=== PATIENT | male | born 1960 | race Caucasian/White ===

== ENCOUNTER 2019-07-16 06:32 | Emergency (ER) | payer OTHER ==
[2019-07-16] MEDS ORDERED: KETOROLAC TROMETHAMINE 60 MG/2 ML SDV IM ONE (07:45)
[2019-07-16 08:10] LABS: ABSOLUTE EOSINOPHILS # (AUTO) 0.1 10^3/uL (0.0-0.6); ABSOLUTE LYMPHOCYTES (AUTO) 1.1 10^3/uL (0.5-4.7); ABSOLUTE MONOCYTES (AUTO) 1.7 10^3/uL (0.1-1.4); ABSOLUTE NEUT (AUTO) 12.6 10^3/uL (1.7-8.2); BASOPHILS % (AUTO) 0.3 % (0-2); EOSINOPHILS % (AUTO) 0.9 % (0-6); LYMPHOCYTES % (AUTO) 7.1 % (13-45); MEAN CORPUSCULAR HEMOGLOBIN 36.3 pg (27.0-33.4); MEAN CORPUSCULAR HGB CONC 35.5 g/dL (32.0-36.0); MEAN CORPUSCULAR VOLUME 103 fl (80-97); MONOCYTES % (AUTO) 10.8 % (3-13); PLATELET COUNT 183 10^3/uL (150-450); RED BLOOD COUNT 5.63 10^6/uL (4.35-5.55); RED CELL DISTRIBUTION WIDTH 13.8 % (11.5-14.0); SEGMENTED NEUTROPHILS % (AUTO) 80.9 % (42-78); TOTAL CELLS COUNTED % (AUTO) 100 %; WHITE BLOOD COUNT 15.6 10^3/uL (4.0-10.5)
--- NOTE | 2019-07-16 08:10 | ER Document Report ---
ED General - General Chief Complaint: Flank Pain Stated Complaint: RIGHT HIP PAIN Time Seen by Provider: 07/16/19 07:29 Primary Care Provider: ELIZABETH PEREZ MD [EMERITUS] - Follow up as needed JANELL GERARDO MD [ACTIVE STAFF] - Follow up as needed Mode of Arrival: Ambulatory Information source: Patient TRAVEL OUTSIDE OF THE [place] IN LAST 30 DAYS: No - HPI Onset: This morning Onset/Duration: Sudden Quality of pain: Sharp Severity: Moderate Pain Level: 3 Associated symptoms: None Exacerbated by: Movement, Other - laying on right side Relieved by: Other - laying on left side Similar symptoms previously: Yes - patient has chronic neck, back, hip and knee pains Recently seen / treated by doctor: Yes - by his Doctor's at the [facility] for steroid injections about a month ago Notes: 59 year old male with a history of chronic neck, back, hip, and knee pains as well as hypertension and kidney stones here in the ER for acute on chronic right sided neck, back, and hip pain since waking up this morning. The patient tells me he has had pain in these areas before but today's pain was more intense. The patient denies recent heavy lifting or recent trauma to his neck, back or hip. - Related Data Allergies/Adverse Reactions: No Known Allergies Allergy (Verified 07/16/19 07:52) Past Medical History - General Information source: Patient - Social History Smoking Status: Current Every Day Smoker Frequency of alcohol use: Occasional Drug Abuse: None Family History: Reviewed & Not Pertinent Patient has suicidal ideation: No Patient has homicidal ideation: No - Past Medical History Cardiac Medical History: Reports: Hx Hypertension Review of Systems - Review of Systems Constitutional: No symptoms reported EENT: No symptoms reported Cardiovascular: No symptoms reported Respiratory: No symptoms reported Gastrointestinal: No symptoms reported Genitourinary: No symptoms reported Male Genitourinary: No symptoms reported Musculoskeletal: Other - right sided neck, back, hip pain Skin: No symptoms reported Hematologic/Lymphatic: No symptoms reported Neurological/Psychological: No symptoms reported -: Yes All other systems reviewed and negative Physical Exam - Vital signs Vitals: Temp Pulse Resp BP Pulse Ox 98.7 F 70 18 143/78 H 97 07/16/19 08:35 07/16/19 08:35 07/16/19 08:35 07/16/19 08:35 07/16/19 08:35 - Notes Notes: GENERAL: Well-appearing, well-nourished and in no acute distress. HEAD: Atraumatic, normocephalic. EYES: Pupils equal round and reactive to light, extraocular movements intact, sclera anicteric, conjunctiva are normal. ENT: Normal external ears, nares patent, oropharynx clear without exudates. Moist mucous membranes. NECK: Normal range of motion, supple without lymphadenopathy or JVD. LUNGS: Breath sounds clear to auscultation bilaterally and equal. No wheezes rales or rhonchi. HEART: Regular rate and rhythm without murmurs, rubs or gallops. ABDOMEN: Soft, nontender, normoactive bowel sounds. No guarding, no rebound. No masses appreciated. BACK: Mild tenderness in lumbar spine region on palpation with no step offs. EXTREMITIES: Mild tenderness in right hip on palpation. Normal range of motion, no pitting or edema. No clubbing or cyanosis. NEUROLOGICAL: Cranial nerves II through XII grossly intact. Normal speech, normal gait. PSYCH: Normal mood, normal affect. SKIN: Warm, Dry, normal turgor, no rashes or lesions noted. Course - Re-evaluation Re-evalutation: 07/16/19 09:16 The patient is here for acute on chronic pain in his right neck, back, hip. The patient is a chronic smoker and his hemoglobin is in the 20s today. When speaking with the patient he has been referred to a Protective Services Social Worker by his PCP but he has not seen one yet. The patient was given IV fluids for his polycythemia in the ER today (it is unlikely this is causing any of his pain). Patient was given Toradol for his acute on chronic right sided neck, back, and hip pain. Patient had some relief from the Toradol. Will DC patient with a course of Naproxen and will refer him to outpatient Hematology. 07/16/19 10:23 The patient has RBCs, WBCs, and Trace Leuk Esterase in his urine. His urine is consistent with a kidney stone. He likely passed a kidney stone on the right but CT shows no evidence of a stone currently. Patient does have a very small left sided kidney stone but the patient's pain was all right sided today. Patient says the more he thinks about, the more he thinks he probably did pass a kidney stone this morning. The patient says he urinated several times before his ER presentation and after the pain started so it is possible the stone has completely passed. Will culture urine to ensure no UTI but this seems unlikely given he is having no dysuria, urgency, frequency, fevers. - Vital Signs Vital signs: Temp Pulse Resp BP Pulse Ox 98.7 F 70 18 143/78 H 97 07/16/19 08:35 07/16/19 08:35 07/16/19 08:35 07/16/19 08:35 07/16/19 08:35 - Laboratory Result Diagrams: 07/16/19 07:45 07/16/19 07:45 Laboratory results interpreted by me: 07/16/19 07/16/19 07/16/19 07:45 07:45 07:45 WBC 15.6 H RBC 5.63 H Hgb 20.5 H* Hct 57.7 H MCV 103 H MCH 36.3 H Lymph % (Auto) 7.1 L Absolute Neuts (auto) 12.6 H Absolute Monos (auto) 1.7 H Seg Neutrophils % 80.9 H Sodium 134.5 L Total Bilirubin 1.6 H Creatine Kinase 34 L Urine Protein Urine Ketones Urine Blood Urine Urobilinogen Ur Leukocyte Esterase 07/16/19 08:55 WBC RBC Hgb Hct MCV MCH Lymph % (Auto) Absolute Neuts (auto) Absolute Monos (auto) Seg Neutrophils % Sodium Total Bilirubin Creatine Kinase Urine Protein 100 H Urine Ketones 20 H Urine Blood LARGE H Urine Urobilinogen 4.0 H Ur Leukocyte Esterase TRACE H - Diagnostic Test Radiology reviewed: Image reviewed, Reports reviewed Discharge - Discharge Clinical Impression: Kidney stone Back pain Qualifiers: Back pain location: low back pain Chronicity: unspecified Back pain laterality: unspecified Sciatica presence: with sciatica Sciatica laterality: sciatica of right side Qualified Code(s): M54.41 - Lumbago with sciatica, right side Condition: Stable Disposition: HOME, SELF-CARE Instructions: Low Back Pain ([facility]), Kidney Stone ([facility]) Additional Instructions: Use the prescribed Naproxen for neck, back and hip pain along with over the counter Tylenol. Also try using a heating pad. Follow up with your primary care doctor and with a Protective Services Social Worker since your Hemoglobin is elevated at 20.5. You had a CT scan today in the ER which shows you have a very small left sided kidney stone. Prescriptions: RX: Naproxen 500 mg PO BID PRN #14 tablet PRN Reason: Referrals: ELIZABETH PEREZ MD [EMERITUS] - Follow up as needed JANELL GERARDO MD [ACTIVE STAFF] - Follow up as needed
[2019-07-16 08:20] LABS: HEMATOCRIT 57.7 % (37.9-51.0)
[2019-07-16 08:22] LABS: ALBUMIN 4.1 g/dL (3.5-5.0); ALKALINE PHOSPHATASE 117 U/L (38-126); ANION GAP 8 (5-19); ASPARTATE AMINO TRANSFERASE 38 U/L (17-59); BILIRUBIN,DIRECT 0.1 mg/dL (0.0-0.4); BILIRUBIN,TOTAL 1.6 mg/dL (0.2-1.3); BLOOD UREA NITROGEN 8 mg/dL (7-20); CALCIUM 9.3 mg/dL (8.4-10.2); CARBON DIOXIDE 27 mmol/L (22-30); CHLORIDE 100 mmol/L (98-107); GLUCOSE 106 mg/dL (75-110); TOTAL PROTEIN 7.5 g/dL (6.3-8.2)
[2019-07-16] MEDS ORDERED: NORMAL SALINE 1000 ML 1,000 ML IV ONE (08:25)
[2019-07-16 08:28] LABS: HEMOGLOBIN 20.5 g/dL (13.5-17.0)
[2019-07-16 09:23] LABS: APPEARANCE,URINE SLIGHTLY-CLOUDY; BILIRUBIN,URINE NEGATIVE (NEGATIVE); COLOR,URINE AMBER; GLUCOSE, URINE NEGATIVE (NEGATIVE); KETONES,URINE 20 mg/dL (NEGATIVE); LEUKOCYTE ESTERASE,URINE TRACE (NEGATIVE); NITRITE,URINE NEGATIVE (NEGATIVE); PROTEIN,URINE 100 mg/dL (NEGATIVE); URINE SPECIFIC GRAVITY 1.015
--- NOTE | 2019-07-16 10:15 | RADIOLOGY REPORT (SQ) ---
EXAM DESCRIPTION: CT ABD/PELVIS NO ORAL OR IV IMAGES COMPLETED DATE/TIME: 07/16/2019 9:58 am REASON FOR STUDY: eval for kidney stone COMPARISON: None. TECHNIQUE: CT scan of the abdomen and pelvis performed without intravenous or oral contrast. Images reviewed with lung, soft tissue, and bone windows. Reconstructed coronal and sagittal MPR images revi ewed. All images stored on PACS. All CT scanners at this facility use dose modulation, iterative reconstruction, and/or weight based d osing when appropriate to reduce radiation dose to as low as reasonably achievable (ALARA). [facility]: Dose Right [facility]: CareDose [facility]: Dose Right [facility]: Teradose 4D [facility]: [employer] RADIATION DOSE: CT Rad equipment meets quality standard of care and radiation dose reduction techniq ues were employed. CTDIvol: 5.4 mGy. DLP: 306 mGy-cm.mGy. LIMITATIONS: Significant scratch sec clinical history is not provided. Location of patient's pain n ot indicated. FINDINGS: LOWER CHEST: Bilateral lower lobe areas of subsegmental atelectasis. Trace right pleural thickening/fluid. Mild pericardial calcification. NON-CONTRASTED LIVER, SPLEEN, ADRENALS: Evaluation limited by lack of IV contrast. No identified sign ificant masses. PANCREAS: No masses. No peripancreatic inflammatory changes. GALLBLADDER: No identified stones by CT criteria. No inflammatory changes to suggest cholecystitis. RIGHT KIDNEY AND URETER: No hydronephrosis. Significant arterial calcification likely lies adjacent to the ureter in the upper pelvis. A true ureteral stone is not suggested. LEFT KIDNEY AND URETER: Nonobstructive nephrolithiasis. No hydronephrosis or ureteral calculi. AORTA AND RETROPERITONEUM: Dense aortic calcification without aneurysm. BOWEL AND PERITONEAL CAVITY: No obvious masses or inflammatory changes. No free fluid. APPENDIX: Normal. PELVIS, BLADDER, AND ABDOMINAL WALL:No abnormal masses. No free fluid. Bladder normal. BONES: No significant findings. OTHER: No other significant finding. IMPRESSION: 1. Nonobstructive left nephrolithiasis. 2. Atherosclerosis. No acute abdominopelvic abnormality. TECHNICAL DOCUMENTATION: JOB ID: [id number] Quality ID # [id number]: Final reports with documentation of one or more dose reduction techniques (e.g., Au tomated exposure control, adjustment of the mA and/or kV according to patient size, use of iterative reconstruction technique) 2010 [employer]- All Rights Reserved Reading location - IP/workstation name: [email or web address]
[2019-07-16 10:50] VITALS: BP 143/87
== END 2019-07-16 10:56 | disposition home or self-care (01) ==
LOC: ER 06:32
DX: M54.41 Lumbago with sciatica, right side (principal); M25.551 Pain in right hip; M54.2 Cervicalgia; M25.569 Pain in unspecified knee; G89.29 Other chronic pain; N20.0 Calculus of kidney; F17.200 Nicotine dependence, unspecified, uncomplicated; I10 Essential (primary) hypertension
CPT/HCPCS: 99284; 96372; 96360; 96361; 36415; 87086; 82550; 83690; 85025; 80053; 81001; 74176; J1885; J7030